=== PATIENT | male | born 1995 | race American Indian/Alaskan Native ===

== ENCOUNTER 2017-05-22 21:40 | Emergency (ER) | payer MEDICAID, OTHER ==
[2017-05-22 22:50] VITALS: RESP 18; TEMP 98.3; BMI 32.1
--- NOTE | 2017-05-23 00:11 | ED PDOC ---
Arrival/HPI - General Chief Complaint: ENT Problem Time Seen by Provider: 05/22/17 23:48 Historian: Patient - History of Present Illness Narrative History of Present Illness (Text): 05/23/17 00:06 A 22 year old male, with no significant past medical history, presents to the emergency department complaining of sore throat and right axilla pain. Patient reports since last night, he has been experiencing burning sensation when swallowing and questions if it could be stomach acid. Also, patient notes he is concerned due to several days ago having experienced swelling pain to right axilla. Swelling has since then subsided and pain has improved, however patient continues to be concerned. Patient notes also feeling flushed, but denies of any fever, abdominal pain, chest pain, rash, or any other complaints. He mentions he currently takes no medications. No PMD Time/Duration: Other (last night sore throat began; several days ago patient had swelling to right axilla.) Quality: Burning (sore throat) Past Medical History - Provider Review Nursing Documentation Reviewed: Yes - Endocrine/Metabolic Hx Diabetes Mellitus Type 2: Yes - Psychiatric Hx Substance Use: No Family/Social History - Physician Review Nursing Documentation Reviewed: Yes Family/Social History: No Known Family HX Smoking Status: Current Some Days Smoker Hx Alcohol Use: Yes Frequency of alcohol use: Socially Hx Substance Use: No Allergies/Home Meds Allergies/Adverse Reactions: Allergies No Known Allergies Allergy (Verified 05/22/17 22:49) Review of Systems - Physician Review All systems were reviewed & negative as marked: Yes - Review of Systems Constitutional: absent: Fevers ENT: Sore Throat (burning sensation when swallowing) Cardiovascular: absent: Chest Pain Gastrointestinal: absent: Abdominal Pain Musculoskeletal: Joint Swelling (right axilla swelling which has subsided and pain has improved but patient remains concerned) Skin: absent: Rash Physical Exam Vital Signs Reviewed: Yes Vital Signs Temp Pulse Resp BP Pulse Ox 05/22/17 22:49 98.3 F 79 18 136/66 97 Temperature: Afebrile Blood Pressure: Normal Pulse: Regular Respiratory Rate: Normal Appearance: Positive for: Well-Appearing Pain Distress: None Mental Status: Positive for: Alert and Oriented X 3 - Systems Exam Pupils: Present: PERRL Extroacular Muscles: Present: EOMI Conjunctiva: Present: Normal Mouth: Present: Moist Mucous Membranes Pharnyx: Present: ERYTHEMA (mild erythemous), TONSILS ENLARGED (bilaterally). No: Other (no lymph node enlargement) Neck: Present: Normal Range of Motion Respiratory/Chest: Present: Clear to Auscultation, Good Air Exchange. No: Respiratory Distress Cardiovascular: Present: Regular Rate and Rhythm, Normal S1, S2. No: Murmurs Abdomen: Present: Normal Bowel Sounds. No: Tenderness Back: Present: Normal Inspection Upper Extremity: Present: Normal Inspection. No: Cyanosis, Edema Lower Extremity: Present: Normal Inspection. No: Edema Neurological: Present: GCS=15, CN II-XII Intact Skin: Present: Warm, Dry, Normal Color. No: Rashes Psychiatric: Present: Alert, Oriented x 3, Normal Insight, Normal Concentration Medical Decision Making ED Course and Treatment: 05/23/17 00:12 Impression: 22 year old male with "burning" sore throat and right axilla swelling. Physical exam shows mild erythemous and tonsil enlargement bilaterally. Differential Diagnosis included but are not limited to: Viral Pharyngitis vs. GERD vs. Strep Throat Plan: -- Rapid Strep Test -- Reassess and disposition Progress Notes: 05/22/2017 00:13 Rapid Strep Test has been ordered and if findings are negative, patient will be given Protonix. - Lab Interpretations Lab Results: Lab Results 05/22/17 23:55: Grp A Beta Strep Ag Negative - Scribe Statement The provider has reviewed the documentation as recorded by the Devon Waite Provider Scribe Attestation: All medical record entries made by the Devon were at my direction and personally dictated by me. I have reviewed the chart and agree that the record accurately reflects my personal performance of the history, physical exam, medical decision making, and the department course for this patient. I have also personally directed, reviewed, and agree with the discharge instructions and disposition. Disposition/Present on Arrival - Present on Arrival Any Indicators Present on Arrival: No History of DVT/PE: No History of Uncontrolled Diabetes: No Urinary Catheter: No History of Decub. Ulcer: No History Surgical Site Infection Following: None - Disposition Have Diagnosis and Disposition been Completed?: Yes Diagnosis: Pharyngitis, GERD (gastroesophageal reflux disease) Disposition: HOME/ ROUTINE Disposition Time: 01:19 Patient Plan: Discharge Condition: FAIR Discharge Instructions (ExitCare): Pharyngitis (ED), Gastroesophageal Reflux Disease (ED) Additional Instructions: take protonix as prescribed Prescriptions: Pantoprazole Sodium [Protonix] 40 mg PO DAILY 14 Days #14 tab Forms: [employer] (Romanian)
[2017-05-23 01:32] VITALS: BP 127/79; PULSE 77; O2SAT 99
== END 2017-05-23 01:50 | disposition home or self-care (01) ==
LOC: ED 21:40
DX: J02.9 Acute pharyngitis, unspecified (principal); K21.9 Gastro-esophageal reflux disease without esophagitis

== ENCOUNTER 2017-09-14 17:22 | Emergency (ER) | payer BC ==
[2017-09-14 17:23] VITALS: BMI 32.1
[2017-09-14] MEDS ORDERED: Promethazine 6.25 MG/5 ML CUP PO STA ×3 (18:04→18:13)
--- NOTE | 2017-09-14 18:10 | ED PDOC ---
Arrival/HPI - General Chief Complaint: Flu-like Symptoms Time Seen by Provider: 09/14/17 18:04 Historian: Patient, Parent (mother) - History of Present Illness Narrative History of Present Illness (Text): 09/14/17 18:05 This 22 yo male presents to this emergency department with his mother complaining of cough x 7 days. Patient admits bodyache, and occasional chills for 7 days, but he denies fever, shortness of breath, sick contact, recent travel, chest pain, abdominal pain, or urinary symptoms. Patient admits working for the [employer]. Time/Duration: 1 week Context: Home Past Medical History - Provider Review Nursing Documentation Reviewed: Yes - Cardiac Hx Cardiac Disorders: No - Pulmonary Hx Respiratory Disorders: No - Neurological Hx Neurological Disorder: No - HEENT Hx HEENT Disorder: No - Renal Hx Renal Disorder: No - Endocrine/Metabolic Hx Endocrine Disorders: Yes Hx Diabetes Mellitus Type 2: Yes - Hematological/Oncological Hx Blood Disorders: No - Integumentary Hx Dermatological Disorder: No - Musculoskeletal/Rheumatological Hx Musculoskeletal Disorders: No - Gastrointestinal Hx Gastrointestinal Disorders: No - Genitourinary/Gynecological Hx Genitourinary Disorders: No - Psychiatric Hx Psychophysiologic Disorder: No Hx Substance Use: No Family/Social History - Physician Review Nursing Documentation Reviewed: Yes Family/Social History: Other (noncontributory) Smoking Status: Current Some Days Smoker Hx Alcohol Use: Yes Hx Substance Use: No Allergies/Home Meds Allergies/Adverse Reactions: Allergies No Known Allergies Allergy (Verified 09/14/17 17:30) Review of Systems - Review of Systems Constitutional: Other (chills). absent: Fatigue, Weight Change, Fevers Eyes: Normal ENT: Normal. absent: Sore Throat, Rhinorrhea Respiratory: Cough. absent: SOB, Sputum, Wheezing Cardiovascular: Normal. absent: Chest Pain, Palpitations Gastrointestinal: Normal. absent: Abdominal Pain, Nausea, Vomiting Genitourinary Male: Normal. absent: Dysuria, Frequency, Hematuria Musculoskeletal: Myalgias Skin: Normal. absent: Rash Neurological: Normal. absent: Headache, Dizziness, Focal Weakness, Gait Changes , Speech Changes, Facial Droop, Disequilibrium, Seizure Endocrine: Normal Hemo/Lymphatic: Normal Psychiatric: Normal Physical Exam Vital Signs Temp Pulse Resp BP Pulse Ox 09/14/17 17:26 98.7 F 97 H 18 131/83 97 Temperature: Afebrile Blood Pressure: Normal Pulse: Regular Respiratory Rate: Normal Appearance: Positive for: Well-Appearing, Non-Toxic, Comfortable Pain Distress: None Mental Status: Positive for: Alert and Oriented X 3 - Systems Exam Head: Present: Atraumatic, Normocephalic Pupils: Present: PERRL Extroacular Muscles: Present: EOMI Conjunctiva: Present: Normal Mouth: Present: Moist Mucous Membranes Neck: Present: Normal Range of Motion. No: Meningeal Signs Respiratory/Chest: Present: Clear to Auscultation, Good Air Exchange. No: Respiratory Distress, Accessory Muscle Use Cardiovascular: Present: Regular Rate and Rhythm, Normal S1, S2. No: Murmurs Abdomen: Present: Normal Bowel Sounds. No: Tenderness, Distention, Peritoneal Signs Back: Present: Normal Inspection. No: CVA Tenderness Upper Extremity: Present: Normal Inspection, Normal ROM. No: Cyanosis, Edema Lower Extremity: Present: Normal Inspection, Normal ROM. No: Edema Neurological: Present: GCS=15, CN II-XII Intact, Speech Normal, Motor Func Grossly Intact, Normal Sensory Function, Normal Cerebellar Funct, Gait Normal Skin: Present: Warm, Dry, Normal Color. No: Rashes Psychiatric: Present: Alert, Oriented x 3, Normal Insight, Normal Concentration Medical Decision Making ED Course and Treatment: 09/14/17 19:22 Influenza test was positive for type B. Patient symptoms for over 7 days. Patient prefers to have ABX, and he understood Tamiflu may not work since symptoms is over 7 days, and it is type B. Re-evaluation Time: 19:22 Reassessment Condition: Re-examined, Improved - Lab Interpretations Lab Results: Lab Results 09/14/17 18:00: Influenza Typ A,B (EIA) Pos for influenza b H I have reviewed the lab results: Yes Interpretation: Abnormal lab values (Influenza type B) - RAD Interpretation Radiology Orders: 09/14/17 18:04 CHEST TWO VIEWS (PA/LAT) [RAD] Stat - Medication Orders Current Medication Orders: Discontinued Medications Promethazine HCl (Phenergan Syrup) 6.25 mg PO STAT STA Stop: 09/14/17 18:14 Last Admin: 09/14/17 18:42 Dose: 6.25 mg Disposition/Present on Arrival - Present on Arrival Any Indicators Present on Arrival: No History of DVT/PE: No History of Uncontrolled Diabetes: No Urinary Catheter: No History of Decub. Ulcer: No History Surgical Site Infection Following: None - Disposition Have Diagnosis and Disposition been Completed?: Yes Diagnosis: Influenza B, Cough Disposition: HOME/ ROUTINE Disposition Time: 19:24 Patient Plan: Discharge Condition: IMPROVED Discharge Instructions (ExitCare): Flu, Adult (DC) Additional Instructions: Call private doctor for follow up visit in 1-2 days. Take medication as instructed with food. Do not drive or operate machinery if you take cough medicine for at least 8 hours. Return to emergency if symptoms worsen. Drink plenty of fluids, and rest. Prescriptions: Azithromycin [Z-Amanuel] 250 mg PO DAILY #4 tab Ibuprofen [Motrin] 600 mg PO Q8 PRN #20 tab PRN Reason: Fever >100.4 F Promethazine/Codeine [Codeine/Promethazine 10 MG/5 Ml-6.25 MG/5 Ml] 5 ml PO Q4H PRN #120 ml PRN Reason: Cough Forms: [facility] (Swedish), WORK NOTE
[2017-09-14 19:39] VITALS: BP 125/82; PULSE 89; RESP 17; TEMP 98.5; O2SAT 98
--- NOTE | 2017-09-15 08:59 | RAD ---
HISTORY: cough COMPARISON: No prior. TECHNIQUE: Chest PA and lateral FINDINGS: LUNGS: No active pulmonary disease. PLEURA: No significant pleural effusion identified. No pneumothorax apparent. CARDIOVASCULAR: Normal. OSSEOUS STRUCTURES: No significant abnormalities. VISUALIZED UPPER ABDOMEN: Normal. OTHER FINDINGS: None. IMPRESSION: No active disease.
== END 2017-09-14 19:39 | disposition home or self-care (01) ==
LOC: ED 17:22
DX: J10.1 Influenza due to other identified influenza virus with other respiratory manifestations (principal); R05 Cough

== ENCOUNTER 2018-11-15 00:18 | Emergency (ER) | payer BC ==
[2018-11-15 00:18] VITALS: BMI 32.1
[2018-11-15] MEDS ORDERED: Sodium Chloride 0.9% 1,000 ML IV STA (00:29)
--- NOTE | 2018-11-15 00:32 | ED PDOC ---
Arrival/HPI - General Chief Complaint: Abdominal Pain Time Seen by Provider: 11/15/18 00:19 Historian: Patient - History of Present Illness Narrative History of Present Illness (Text): 11/15/18 00:36 23 year old male, with past medical history of diabetes type 2 and no surgeries, presents to emergency department with complaints of abdominal pain for the past two weeks. Patient states pain is worse to the lower abdomen. Patient denies any fevers, nausea, vomiting, diarrhea, testicular or urinary complaints, or any other complaints. Time/Duration: Other (2 weeks ) Symptom Onset: Gradual Symptom Course: Unchanged Activities at Onset: Light Context: Home Past Medical History - Provider Review Nursing Documentation Reviewed: Yes - Infectious Disease Hx of Infectious Diseases: None - Cardiac Hx Cardiac Disorders: No - Pulmonary Hx Respiratory Disorders: No - Neurological Hx Neurological Disorder: No - HEENT Hx HEENT Disorder: No - Renal Hx Renal Disorder: No - Endocrine/Metabolic Hx Endocrine Disorders: Yes Hx Diabetes Mellitus Type 2: Yes - Hematological/Oncological Hx Blood Disorders: No - Integumentary Hx Dermatological Disorder: No - Musculoskeletal/Rheumatological Hx Musculoskeletal Disorders: No - Gastrointestinal Hx Gastrointestinal Disorders: No - Genitourinary/Gynecological Hx Genitourinary Disorders: No - Psychiatric Hx Psychophysiologic Disorder: No Hx Substance Use: No - Anesthesia Hx Anesthesia: No - Suicidal Assessment Feels Threatened In Home Enviroment: No Family/Social History - Physician Review Nursing Documentation Reviewed: Yes Family/Social History: Unknown Family HX Smoking Status: Current Some Days Smoker Hx Alcohol Use: Yes Frequency of alcohol use: Socially Hx Substance Use: No Allergies/Home Meds Allergies/Adverse Reactions: Allergies No Known Allergies Allergy (Verified 11/15/18 00:26) Home Medications: Home Meds Medication Instructions Recorded Confirmed Linagliptin/Metformin HCl 1 tab PO DAILY 11/15/18 11/15/18 [Jentadueto Xr 5 mg-1,000 mg Tb] No Known Home Med 11/15/18 Review of Systems - Physician Review All systems were reviewed & negative as marked: Yes - Review of Systems Constitutional: absent: Fevers Respiratory: absent: SOB, Cough Gastrointestinal: Abdominal Pain (worse to lower abdomen). absent: Diarrhea, Nausea, Vomiting Genitourinary Male: absent: Urinary Output Changes Musculoskeletal: absent: Back Pain, Neck Pain Skin: absent: Rash Neurological: absent: Headache, Dizziness Physical Exam Vital Signs Reviewed: Yes Temperature: Afebrile Blood Pressure: Normal Pulse: Regular Respiratory Rate: Normal Appearance: Positive for: Well-Appearing, Non-Toxic, Comfortable Pain Distress: None Mental Status: Positive for: Alert and Oriented X 3 - Systems Exam Head: Present: Atraumatic, Normocephalic Pupils: Present: PERRL Extroacular Muscles: Present: EOMI Conjunctiva: Present: Normal Mouth: Present: Moist Mucous Membranes Neck: Present: Normal Range of Motion Respiratory/Chest: Present: Clear to Auscultation, Good Air Exchange. No: Respiratory Distress, Accessory Muscle Use Cardiovascular: Present: Regular Rate and Rhythm, Normal S1, S2. No: Murmurs Abdomen: Present: Tenderness (minimal suprapubic tenderness ). No: Distention, Peritoneal Signs Back: Present: Normal Inspection Upper Extremity: Present: Normal Inspection. No: Cyanosis, Edema Lower Extremity: Present: Normal Inspection. No: Edema Neurological: Present: GCS=15, CN II-XII Intact, Speech Normal Skin: Present: Warm, Dry, Normal Color. No: Rashes Psychiatric: Present: Alert, Oriented x 3, Normal Insight, Normal Concentration Medical Decision Making ED Course and Treatment: ro coltitis, uti, appendicitis. 11/15/18 00:42 Impression: 23 year old male presents to emergency department for abdominal pain for the past two weeks. Plan: -- Labs -- IV Fluids -- Tylenol -- Urinalysis -- Reassess and disposition Prior Visits: Notes and results from previous visits were reviewed. Progress Notes: 11/15/18 04:19 CT Abdomen/Pelvis, reviewed by radiologist: IMPRESSION: Mild cystitis. Suspected ascending urinary tract infection. Thank you for your kind referral of this patient. Electronically signed on Nov 15, 2018 2:55:58 AM EDT by: Juan Jose Soto M.D., Certified by [facility], MSK, Neuroradiology 11/15/18 05:25 no rinary complaints ua neg. labs neg. pt in nad. advise outpt fu. - Medication Orders Current Medication Orders: Sodium Chloride (Sodium Chloride 0.9%) 1,000 mls @ 1,000 mls/hr IV .Q1H STA Stop: 11/15/18 01:28 Discontinued Medications Acetaminophen (Tylenol 325mg Tab) 975 mg PO STAT STA Stop: 11/15/18 00:30 - Scribe Statement The provider has reviewed the documentation as recorded by the Scribe Giles Guevara All medical record entries made by the Scribe were at my direction and personally dictated by me. I have reviewed the chart and agree that the record accurately reflects my personal performance of the history, physical exam, medical decision making, and the department course for this patient. I have also personally directed, reviewed, and agree with the discharge instructions and disposition. Disposition/Present on Arrival - Present on Arrival Any Indicators Present on Arrival: No History of DVT/PE: No History of Uncontrolled Diabetes: No Urinary Catheter: No History of Decub. Ulcer: No History Surgical Site Infection Following: None - Disposition Have Diagnosis and Disposition been Completed?: Yes Diagnosis: Abdominal pain Disposition: HOME/ ROUTINE Disposition Time: 02:00 Condition: STABLE Discharge Instructions (ExitCare): Acute Abdomen (Belly Pain) Additional Instructions: return to er with worsening symptoms or concerns. Referrals: Cam Genao MD [Staff Provider] - Follow up with primary Forms: [employer] (Filipino)
[2018-11-15 00:57] VITALS: TEMP 98.4
[2018-11-15 01:13] LABS: BASO # 0.04 K/mm3 (0.0-2.0); BASO % 0.4 % (0.0-3.0); EOS # 0.2 (0.0-0.7); EOS % 1.9 % (1.5-5.0); LYMPH # 2.8 (1.2-3.4); LYMPH % 27.5 % (22.0-35.0); MEAN CELL VOLUME 86.8 fl (80.0-105.0); MEAN CORPUSCULAR HEMOGLOBIN 28.4 pg (25.0-35.0); MEAN CORPUSCULAR HGB CONC 32.7 g/dl (31.0-37.0); MEAN PLATELET VOLUME 11.1 fl (7.0-11.0); MONO # 0.7 (0.1-0.6); MONO % 7.4 % (1.0-6.0); RBC 4.93 10^6/uL (3.5-6.1); RED CELL DISTRIBUTION WIDTH 12.1 % (11.5-14.5); WHITE BLOOD COUNT 10.1 10^3/uL (4.5-11.0)
[2018-11-15 01:17] LABS: PH,URINE 6.5 (4.7-8.0); URINE BILIRUBIN NEGATIVE (NEGATIVE); URINE BLOOD NEGATIVE (NEGATIVE); URINE GLUCOSE (UA) >=1000 mg/dL (NEGATIVE); URINE LEUKOCYTE ESTERASE NEGATIVE Leu/uL (NEGATIVE); URINE PROTEIN NEGATIVE mg/dL (<30 mg/dL); URINE UROBILINOGEN 0.2 E.U./dL (<1 E.U./dL)
[2018-11-15 01:18] LABS: INR 1.06; PARTIAL THROMBOPLASTIN TIME 38.4 Seconds (26.9-38.3); PROTHROMBIN TIME 11.8 SECONDS (9.4-12.5)
[2018-11-15 01:20] LABS: ALB/GLOB RATIO 1.4 (1.1-1.8); ALBUMIN 4.4 g/dL (3.0-4.8); ALT/SGPT 49 U/L (7-56); AST/SGOT 35 U/L (17-59); BLOOD UREA NITROGEN 13 mg/dL (7-21); CALCIUM 9.2 mg/dL (8.4-10.5); GFR NON-AFRICAN AMERICAN > 60; LIPASE 115 U/L (23-300)
[2018-11-15 01:22] LABS: URINE APPEARANCE CLEAR (CLEAR); URINE COLOR LIGHT YELLOW (YELLOW)
[2018-11-15] MEDS ORDERED: Iohexol 350 MG/100 ML VIAL ONE (01:33)
[2018-11-15 02:33] VITALS: BP 118/80; PULSE 73; RESP 16; O2SAT 100
--- NOTE | 2018-11-15 09:56 | CT ---
Date of service: 11/15/2018 PROCEDURE: CT Abdomen and Pelvis with contrast HISTORY: lower abd pain COMPARISON: None. TECHNIQUE: Contrast dose: 100 cc of Omni 350 Radiation dose: Total exam DLP = 943.5 mGy-cm. This CT exam was performed using one or more of the following dose reduction techniques: Automated exposure control, adjustment of the mA and/or kV according to patient size, and/or use of iterative reconstruction technique. FINDINGS: LOWER THORAX: Unremarkable. LIVER: Unremarkable. No gross lesion or ductal dilatation. GALLBLADDER AND BILE DUCTS: Unremarkable. PANCREAS: Unremarkable. No gross lesion or ductal dilatation. SPLEEN: Unremarkable. ADRENALS: Unremarkable. No mass. KIDNEYS AND URETERS: Unremarkable. No hydronephrosis. No solid mass. VASCULATURE: Unremarkable. No aortic aneurysm. No aortic atherosclerotic calcification or mural plaque present. BOWEL: Unremarkable. No obstruction. No gross mural thickening. APPENDIX: Normal appendix. PERITONEUM: Unremarkable. No free fluid. No free air. LYMPH NODES: Unremarkable. No enlarged lymph nodes. BLADDER: Mild mural thickening in the bladder. Possible cystitis REPRODUCTIVE: Unremarkable. BONES: No acute fracture. OTHER FINDINGS: The report concurs with the preliminary [facility] report IMPRESSION: Mild mural thickening in the bladder. Possible cystitis No acute intra-abdominal findings
== END 2018-11-15 03:09 | disposition home or self-care (01) ==
LOC: ED 00:18
DX: R10.9 Unspecified abdominal pain (principal); E11.9 Type 2 diabetes mellitus without complications
CPT/HCPCS: 74177; 80053; 81003; 83690; 83735; 85025; 85610; 85730; 96374; 99284; J1885; J7030; Q9967